=== PATIENT | male | born 1975 | race Caucasian/White ===

== ENCOUNTER → 2018-11-21 09:53 | Outpatient (CLI) | payer OTHER, SELFPAY ==
--- NOTE | 2018-11-21 | DI.MRI.S_ITS ---
PROCEDURE: MR HAND LT WO/W CON INDICATIONS: Localized swelling, mass and lump, unspecified upp TECHNIQUE: Noncontrast coronal T1 spin echo and STIR, sagittal T1 spin echo with fat saturation and STIR, axial T1 spin echo and T2 fast spin echo with fat saturation. After the administration of contrast, axial/sagittal/coronal T1 spin echo with fat saturation through the left hand. COMPARISON: None. FINDINGS: Image quality: Excellent. Bones: The visualized bone marrow demonstrates normal signal on all sequences. The overlying cortex appears intact. No abnormal intraosseous enhancement. Soft tissues: 5 mm round enhancing soft tissue nodule is seen along the ulnar side smaller aspect of the left middle finger, image 21 series 7. This demonstrates T2 hyperintense appearance The scanned muscles demonstrate normal overall bulk and internal signal. Subcutaneous tissues appear normal as well. No abnormal soft tissue enhancement. IMPRESSION: 5 mm enhancing soft tissue nodular appearance along the ulnar/palmar aspect of the left middle finger at the level of the proximal phalanx near the PIP joint. Finding is too small to characterize definitively however not cystic in nature by the MR signal characteristics. Differential includes focal inflammation, fibroma/early fibromatosis, small nerve sheath tumor, other additional less likely neoplastic possibilities. Infection or vascular abnormality is thought to be less likely. Recommend clinical/symptomatic management. Dictated by: Lit Martinez M.D. on 11/21/2018 at 13:04 Approved by: Lit Martinez M.D. on 11/21/2018 at 13:25
== END ==
PROVIDERS: PCP Family Medicine; Visit Provider Orthopaedic Surgery
DX: R22.32 Localized swelling, mass and lump, left upper limb (principal)
CPT/HCPCS: 73220; A9579

== ENCOUNTER → 2019-01-03 08:42 | Outpatient (CLI) | payer OTHER, SELFPAY ==
--- NOTE | 2019-01-03 | DI.MRI.S_ITS ---
PROCEDURE: MR HEAD/BRAIN WO CON INDICATIONS: POST CONCUSSION SYNDROME TECHNIQUE: Noncontrast axial T1 spin echo, axial T2 fast spin echo, sagittal and axial FLAIR, coronal T2 fast spin echo, axial gradient echo, axial diffusion and ADC through the brain. COMPARISON: None. FINDINGS: Image quality: Excellent. CSF Spaces: Basal cisterns are patent. No extra-axial fluid collections. Ventricles are normal in size and shape. Brain: No intracranial masses or hemorrhage. Fairchild/white matter interface is normal. Brainstem appears normal. Diffusion-weighted images demonstrate no acute ischemic insult. No chronic ischemic insults. Normal intravascular flow voids are present. Skull and face: Calvarium has normal marrow signal. Orbits appear normal. Sinuses: Sinuses and mastoids are clear. IMPRESSION: Normal for age, no sign of posttraumatic brain parenchymal hemorrhage or epidural/subdural hematoma. Dictated by: Anil Solares M.D. on 01/05/2019 at 8:15 Approved by: Anil Solares M.D. on 01/05/2019 at 8:16
== END ==
PROVIDERS: PCP Family Medicine; Visit Provider Psychiatry & Neurology Neurology
DX: F07.81 Postconcussional syndrome (principal)
CPT/HCPCS: 70551

== ENCOUNTER → 2019-02-17 06:56 | Outpatient (CLI) | payer OTHER, SELFPAY ==
--- NOTE | 2019-02-17 | DI.ECHO.S_ITS ---
[facility] +---------+ : : [address] : : : : [id number] : : : : Phone: [phone]+ Echocardiogram Report + + :Name: BJ CORNELL Study Date: 02/17/2019 Height: 68 in : [id number]: [facility] Weight: 215 lb : : Gender: Male BSA: 2.1 m2 : :: 1975 Age: 43 yrs BP: 120/85 mmHg: :Reason For Study: Murmur : : Performed By: Hiral Holman : :Referring: ALEXEY MENDOZA : + + Interpretation Summary The ejection fraction is estimated to be 60-65%. There is no significant valvular heart disease. Procedure: A two-dimensional transthoracic echocardiogram with color flow and Doppler was performed. The study quality was technically adequate. There is no prior echocardiogram noted for this patient. The patient was in normal sinus rhythm during the exam. Left Ventricle: The left ventricle is normal in size, wall thickness, and systolic function without any focal wall motion abnormalities. The ejection fraction is estimated to be 60-65%. Diastolic parameters suggest probable normal left ventricular diastolic function and normal filling pressures. Right Ventricle: The right ventricle is normal in size and function. Atria: Both atria are normal in size. There is no Doppler evidence for an interatrial shunt. Mitral Valve: The mitral valve is normal in structure and function. There is trace mitral regurgitation. Aortic Valve: The aortic valve is trileaflet. The aortic valve opens well. There is trace aortic regurgitation. Tricuspid Valve: The tricuspid valve is normal in structure and function. There is trace tricuspid regurgitation. The right ventricular systolic pressure is estimated to be at least 23 mmHg based on an estimated right atrial pressure of 3 mm Hg. Pulmonic Valve: The pulmonic valve is not well seen, but is grossly normal. There is trace pulmonic regurgitation. Great Vessels: The aortic root is normal size. The ascending aorta is at the upper limits of normal in size. Mild atherosclerotic plaque(s) in the aortic arch. The aortic arch is normal in size. The pulmonary artery is not well visualized, but is probably normal size. The IVC is of normal diameter and collapses greater than 50% with a sniff. This suggests a low right atrial pressure of 3 mm Hg. Pericardium/ Pleura There is no pericardial effusion. There is no pleural effusion. MMode/2D Measurements & Calculations LVIDd: 4.6 cm LVOT diam: 1.9 cm LVIDs: 3.0 cm Ao root diam: 3.4 cm FS: 35.1 % asc Aorta Diam: 3.4 cm EPSS: 0.11 cm Ao Arch Diam (Prox Trans): 2.5 cm IVSd: 0.68 cm LVPWd: 0.96 cm LV castellon. diameter/BSA (cm/m^2): 2.2 LV sys. diameter/BSA (cm/m^2): 1.4 LA A2 area: 23.2 cm2 RA long axis: 5.0 cm LA A4 area: 18.8 cm2 RA area: 17.5 cm2 LA length (vol): 5.3 cm RA vol: 52.0 ml LA vol: 69.9 ml RA : 24.7 ml/m2 LA vol index: 33.1 ml/m2 IVC diam: 1.9 cm RVD1 (basal): 4.3 cm RVD2 (mid): 3.7 cm TAPSE: 2.1 cm Doppler Measurements & Calculations Ao V2 max: 140.0 cm/sec LVOT Max Fran: 124.0 cm/sec Ao V2 mean: 97.8 cm/sec LV V1 max P.1 mmHg Ao max P.8 mmHg LV V1 VTI: 23.5 cm Ao mean P.2 mmHg HETAL(I,D): 2.7 cm2 Ao V2 VTI: 24.9 cm HETAL(V,D): 2.5 cm2 sev ratio: 0.94 HETAL indexed to BSA (cm^2/m^2): 1.3 MV E max fran: 71.5 cm/sec TR max fran: 222.8 cm/sec MV A max fran: 80.7 cm/sec TR max P.9 mmHg MV E/A: 0.89 PA V2 max: 85.9 cm/sec Med Peak E' Fran: 7.4 cm/sec PA V2 mean: 62.8 cm/sec E/E' med: 9.6 PA mean P.7 mmHg Lat Peak E' Fran: 13.8 cm/sec PA Accel Time: 0.13 sec E/E' lat: 5.2 E/e' average: 7.4 MV dec time: 0.17 sec MV P1/2t: 51.7 msec MV P1/2t max fran: 74.3 cm/sec SV(LVOT): 67.6 ml MVA(P1/2t): 4.3 cm2 Reading Physician:08:18 AM
== END ==
PROVIDERS: PCP Family Medicine; Visit Provider Physician Assistant
DX: R01.1 Cardiac murmur, unspecified (principal); I70.0 Atherosclerosis of aorta
CPT/HCPCS: 93306

== ENCOUNTER 2019-03-16 12:30 | Outpatient (RCR) | payer OTHER, SELFPAY ==
--- NOTE | 2019-01-19 18:28 | ST.OPIE ---
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 Brenda Gonzalez Reason for Referral Concussive cognitive problems Language Evaluation Assessment Type Expressive/Receptive/Cognitive Communication Skills Past Medical History Patient History The pt is a 43-yr-old right- handed male who experienced a concussive head injury in June 2018 while working out at the gym. He fell from a bar 8 feet in the air and landed on his neck, shoulder and head. He lost conciuosness for an unknown period of time and was found by another person working out at the gym. He did not seek urgent medical attention after regaining consciousness, though he experienced slight confusion and mild headache. Symptoms worsened after he got home; his headache was more severe, he had blurred vision and tunnel vision, and was vomiting. 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 Head CT was administered and negative for acute changes. Medicinal treatment is now being managed by Dr. Gonzalez, who referred the pt to Speech Pathology secondary to word- finding difficulties and forgetfulness which interfere with his ability to perform his work duties and participate in his home life with his and 2 children. 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 Over the course of his life, he has participated in activities of moderate to high risk for concussion, including playing football and serving in active duty. He recalled once hitting his head on the bottom of a swimming pool when diving but denies any symptoms similar to those experienced in his 2018 fall. 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 - Informal Assessment Receptive Language Normal Yes Expressive Language Normal No: Word finding difficulties Articulation Normal Yes Cognition Normal No: Short-term/working memory impairment Assessment Findings The pt performed WNL on standardized test. However, he complains of impairments in memory and attention that interfere with his ability to perform his jobs and hobbies and participate in ADLs per PLOF. Recommendations Further standardized and criterion referenced assessment is necessary to fully evaluate the pt's areas of strengths and deficits to guide POC. Formal Assessment Standardized Test Scales of Cognitive & Communicative Ability for Neurorehabilitation (SCCAN) Administration Complete Raw Score 93 Percentile Rank 87 Results Degree of Severity: Typical Functioning Pt achieved 100% in the following Scales: Oral Expression, Orientation, Memory, Reading Comprehension, Writing, Attention, and Problem Solving. He achieved 92% accuracy in Speech Comprehension. - Receptive Language - Expressive Language - Treatment Goals Short Term Goals 1. The pt will participate in further evaluation of expressive, receptive, and cognitive communication skills to guide POC. 2. The pt will perform selective attention tasks of moderate difficulty with 90% accuracy to improve ability to attain to tasks in busy functional environments and complete work and home responsibilities. 3. The pt will perform short- term and working memory tasks of moderate difficulty with 90 % accuracy to improve ability to attain to tasks in busy functional environments and complete work and home responsibilities. Further goals to be developed upon completion of assessment. Office Service Coordinator Goals 1. The pt will demonstrate expressive, receptive, and cognitive communication skills WFL to perform work and home responsibilities and maintain professional and personal relationships. Further goals to be developed upon completion of assessment.
--- NOTE | 2019-01-27 17:53 | ST.OPTN ---
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 He reported observations of difficulties with attention, STM (i.e., arriving for treatment on the wrong day and forgetting to complete a task requested by his ~10 min after the request), and dependence on notes and lists for recall. 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 The pt will demonstrate understanding of word recall strategies by performing structured circumlocution and synonym tasks with 90% accuracy. 2. The pt will perform selective attention tasks of moderate difficulty with 90% accuracy to improve ability to attain to tasks in busy functional environments and complete work and home responsibilities. 3. Using memory strategies as needed, the pt will retell short stories (up to 10 sentences) with 80% accuracy to improve memory function and demonstrate understanding of memory strategies. Fci Goals 1. The pt will perform short- term and working memory tasks of moderate difficulty with 90 % accuracy to improve ability to attain to tasks in busy functional environments and complete work and home responsibilities. 2. The pt will demonstrate delayed recall (10 or more minutes) of functional information provided orally (e .g., tasks, lists, messages, etc.) with 90% accuracy to improve short-term and working memory for functional responsibilities. 3.The pt will demonstrate expressive, receptive, and cognitive communication skills WFL to perform work and home responsibilities and maintain professional and personal relationships, as measured by therapeutic task completion, pt/family report, and clinician judgment. Treatment Activities Education provided to pt RE SCCAN test results. Administered Cognitive Linguistic Quick Test for further evaluation of speech/ language/cognitive communication skills. All scores were WNL. Pt exhibited greatest difficulty with story retell, recalling 50% of story details; and design generation, generating 11 total designs, two of which were perseverated. The pt stated his difficulty with story recall demonstrated his greatest challenge. Skilled feedback provided including HEP tasks. Pt was receptive and agreeable to recommendations. Assessment Patient Response to Treatment Good Rehab Potential Good Impairments Identified Attention Memory - Short Term Memory - Working Assessment of Improvement The pt demonstrated skills WNL in total scores of standardized assessment. Deficits in STM were exhibited in subtests, particularly story retell, and possible attention/recall/mental flexibility deficits in design generation. He exhibited strengths in areas of executive functions including planning, sequencing and problem solving. Reviewed with Patient Goals Progress Being Made Home Exercise Program Patient/Caregiver Understanding Excellent Plan Therapeutic Contents Client Education Cognitive-Linguistic Training Home Exercise Program Information Processing Provided Patient/Caregiver Instruction Home Exercise Program Plan of Care Questions/Concerns Therapy Recommendations Continue with Current Program
--- NOTE | 2019-01-28 11:50 | ST.OPTN ---
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 PARCEL POST CLERK Treatment Note Start: 01/14/19 14:37 Freq: Status: Active Protocol: Document 01/28/19 10:20 JORGE LUIS (Rec: 01/28/19 10:21 JORGE LUIS [id number]) Speech Pathology Treatment Note Session Time Visit Start Time 09:35 Visit Stop Time 10:20 Total Visit Minutes 45 Visit Information Visit Number 10/19 Insurance Information Setting Treatment Setting Outpatient Care Visit Type Note Type Treatment Note Next Note Type Next Note Type Treatment Note General Information General Information The pt is a 43-yr-old right- handed male who experienced a concussive head injury in June 2018 while working out at the gym. He fell from a bar 8 feet in the air and landed on his neck, shoulder and head. He lost conciuosness for an unknown period of time and was found by another person working out at the gym. He did not seek urgent medical attention after regaining consciousness, though he experienced slight confusion and mild headache. Symptoms worsened after he got home; his headache was more severe, he had blurred vision and tunnel vision, and was vomiting. 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 Head CT was administered and negative for acute changes. Medicinal treatment is now being managed by Dr. Gonzalez, who referred the pt to Speech Pathology secondary to word- finding difficulties and forgetfulness which interfere with his ability to perform his work duties and participate in his home life with his and 2 children. 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 Over the course of his life, he has participated in activities of moderate to high risk for concussion, including playing football and serving in active duty. He recalled once hitting his head on the bottom of a swimming pool when diving but denies any symptoms similar to those experienced in his 2018 fall. PMHx: Arthritis, back pain, depression, dizziness, GERD, headaches, hearing problems, hernia, memory loss, psychological disorder (PTSD from experience), shortness of breath, surgery ( not specified), TBI/Concussion Subjective Observations/Patient Presentation Pt arrived on time. He reported observations of difficulties with attention, STM (i.e., arriving for treatment on the wrong day and forgetting to complete a task requested by his ~10 min after the request), and dependence on notes and lists for recall. 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 The pt will demonstrate understanding of word recall strategies by performing structured circumlocution and synonym tasks with 90% accuracy. 2. The pt will perform selective attention tasks of moderate difficulty with 90% accuracy to improve ability to attain to tasks in busy functional environments and complete work and home responsibilities. 3. Using memory strategies as needed, the pt will retell short stories (up to 10 sentences) with 80% accuracy to improve memory function and demonstrate understanding of memory strategies. Director Public Service Goals 1. The pt will perform short- term and working memory tasks of moderate difficulty with 90 % accuracy to improve ability to attain to tasks in busy functional environments and complete work and home responsibilities. 2. The pt will demonstrate delayed recall (10 or more minutes) of functional information provided orally (e .g., tasks, lists, messages, etc.) with 90% accuracy to improve short-term and working memory for functional responsibilities. 3.The pt will demonstrate expressive, receptive, and cognitive communication skills WFL to perform work and home responsibilities and maintain professional and personal relationships, as measured by therapeutic task completion, pt/family report, and clinician judgement. Treatment Activities Training provided in: Word Recall: Instructed pt in circumlocution strategy. Given 2 known words, the pt identified their categories and a variety of details about the items. He identified games that require similar tasks, which will serve as excellent training exercises. Name Recall: Trained association techniques using several examples. The pt identified similar strategy he used to use, demonstrating understanding. Selective Attention: Trained pt in meditation task. He chose a a task he needs to do today as his centering thought and with eyes closed focused his mind on that thought for 2 minutes. He was instructed to acknowledge any competing thoughts and redirect his attention to the centering thought. He stated the task was very difficult. Skilled feedback provided on all of today's tasks RE how they train the brain to think in new ways. Recommend multiple daily practices with each, particularly selective attention exercise, to promote habitual behaviors that will carry over to functional tasks . Pt verbalized understanding and agreement. Assessment Patient Response to Treatment Good Rehab Potential Good Impairments Identified Attention Memory - Short Term Memory - Working Assessment of Improvement The pt demonstrated understanding of all tasks targeted today. He exhibited excellent focused and sustained attention, significant difficulty with selective attention. All task require reinforcement, but the pt was highly stimulable to each. Reviewed with Patient Goals Progress Being Made Home Exercise Program Patient/Caregiver Understanding Excellent Plan Therapeutic Contents Client Education Cognitive-Linguistic Training Home Exercise Program Information Processing Provided Patient/Caregiver Instruction Home Exercise Program Plan of Care Questions/Concerns Therapy Recommendations Continue with Current Program
--- NOTE | 2019-02-04 12:47 | ST.OPTN ---
Care Team Visit Care Team Role Provider Type Luigi Barrios MD Primary Care Provider Non-Staff Address: [facility] [place], [address] Fax: Brenda Gonzalez MD Attending Provider Non-Staff Address: [address] [place], [address] AIR SAMPLER Treatment Note AIR SAMPLER Treatment Note Start: 01/14/19 14:37 Freq: Status: Active Protocol: Document 02/04/19 09:28 JORGE LUIS (Rec: 02/04/19 10:23 JORGE LUIS [id number]) Speech Pathology Treatment Note Session Time Visit Start Time 09:35 Visit Stop Time 10:20 Total Visit Minutes 45 Visit Information Visit Number 11/[id number] Plan of Care Dates 01/14/19 - 04/09/19 Insurance Information Setting Treatment Setting Outpatient Care Visit Type Note Type Treatment Note Next Note Type Next Note Type Treatment Note General Information General Information The pt is a 43-yr-old right- handed male who experienced a concussive head injury in June 2018 while working out at the gym. He fell from a bar 8 feet in the air and landed on his neck, shoulder and head. He lost conciuosness for an unknown period of time and was found by another person working out at the gym. He did not seek urgent medical attention after regaining consciousness, though he experienced slight confusion and mild headache. Symptoms worsened after he got home; his headache was more severe, he had blurred vision and tunnel vision, and was vomiting. 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 Head CT was administered and negative for acute changes. Medicinal treatment is now being managed by Dr. Gonzalez, who referred the pt to Speech Pathology secondary to word- finding difficulties and forgetfulness which interfere with his ability to perform his work duties and participate in his home life with his and 2 children. 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 Over the course of his life, he has participated in activities of moderate to high risk for concussion, including playing football and serving in active duty. He recalled once hitting his head on the bottom of a swimming pool when diving but denies any symptoms similar to those experienced in his 2018 fall. PMHx: Arthritis, back pain, depression, dizziness, GERD, headaches, hearing problems, hernia, memory loss, psychological disorder (PTSD from experience), shortness of breath, surgery ( not specified), TBI/Concussion Subjective Observations/Patient Presentation Pt arrived on time. He reported observations of difficulties with attention, STM (i.e., arriving for treatment on the wrong day and forgetting to complete a task requested by his ~10 min after the request), and dependence on notes and lists for recall. Chief Complaint(s) Language Cognitive Rehab Expectation/Goals: Patient Goals Improve word recall, attention and memory Patient Knowledge/Awareness of AIR SAMPLER Role Good in Treatment Patient/Caregiver Compliance with Home Good Exercise Program Objective Short Term Goals 1. The pt will demonstrate understanding of word recall strategies by performing structured circumlocution and synonym tasks with 90% accuracy. 2. The pt will perform selective attention tasks of moderate difficulty with 90% accuracy to improve ability to attain to tasks in busy functional environments and complete work and home responsibilities. 3. Using memory strategies as needed, the pt will retell short stories (up to 10 sentences) with 80% accuracy to improve memory function and demonstrate understanding of memory strategies. Penitentiary Goals 1. The pt will perform short- term and working memory tasks of moderate difficulty with 90 % accuracy to improve ability to attain to tasks in busy functional environments and complete work and home responsibilities. 2. The pt will demonstrate delayed recall (10 or more minutes) of functional information provided orally (e .g., tasks, lists, messages, etc.) with 90% accuracy to improve short-term and working memory for functional responsibilities. 3.The pt will demonstrate expressive, receptive, and cognitive communication skills WFL to perform work and home responsibilities and maintain professional and personal relationships, as measured by therapeutic task completion, pt/family report, and clinician judgement. Treatment Activities Attention: Pt identified environmental distractors and one strategy for minimizing them to better attend to and complete functional tasks. Pt acknowledged drifting in his thoughts during conversation with AIR SAMPLER. When prompted, he was able to retell main points of conversation and the therapist's recommendations, indicating increased awareness of attention distractors and ability to self-monitor and correct, at least moderately. Memory/Schedule: Pt is highly dependent on phone calendar, checking it multiple times per task d/t fear of missing a task, resulting in highly inefficient use of memory tool . Recommended strategies including dedicated times to review the calendar (complete day or broken into segments) and setting of alarms to alert prior to each item. Pt identified routine events he is not remembering (e.g., son' s weekly swim lessons). Pt agreed to create and bring list of these items to next session for memory strategies training. Skilled education and feedback was provided RE all tasks and pt's concerns. Pt verbalized understanding. HEP: Further developed HEP tasks including at scheduled review of calendar & modifications as needed to improve efficiency of its use; commitment to 1 task/day around which the pt will set up environment to reduce distractions and promote completion of task. Assessment Patient Response to Treatment Good Rehab Potential Good Impairments Identified Attention Memory - Short Term Memory - Working Assessment of Improvement The pt continues to struggle with selective attention skills, acknowledging he is easily distracted in his mind during meditative exercises and in conversations, and during functional tasks is easily distracted by thoughts and environmental distractors. He was responsive to feedback and recommendations for home practice. Calendar use for tracking daily responsibilities is helpful but inefficient. The pt exhibits low levels of trust of the device and his own memory, which lead to frequent episodes of checking his calendar and moments of panic. He stated, My calendar is holding my life together, but I feel like I'm just one lost thought away from missing something that will throw everything off course. Again he was receptive to recommendations to set alarms/ reminders for critical events, to establish routine times to review his calendar and then resist urge to doubt himself of the device and subsequently re-check calendar every few minutes. Reviewed with Patient Goals Progress Being Made Home Exercise Program Patient/Caregiver Understanding Excellent Plan Treatment Emphasis Next Session Internal memory strategies using routine functional events & pt's calendar Therapeutic Contents Client Education Cognitive-Linguistic Training Home Exercise Program Information Processing Provided Patient/Caregiver Instruction Home Exercise Program Plan of Care Questions/Concerns Therapy Recommendations Continue with Current Program
--- NOTE | 2019-02-11 09:27 | ST.OPTN ---
Care Team Visit Care Team Role Provider Type Luigi Barrios MD Primary Care Provider Non-Staff Address: [facility] [place], [address] Fax: Brenda Gonzalez MD Attending Provider Non-Staff Address: [address] [place], [address] BUSINESS MANAGER Treatment Note BUSINESS MANAGER Treatment Note Start: 01/14/19 14:37 Freq: Status: Active Protocol: Document 02/11/19 09:20 JORGE LUIS (Rec: 02/11/19 09:27 JORGE LUIS [id number]) Speech Pathology Treatment Note Session Time Visit Start Time 08:32 Visit Stop Time 10:17 Total Visit Minutes 45 Visit Information Visit Number 12/17 Plan of Care Dates 01/14/19 - 04/09/19 Insurance Information Setting Treatment Setting Outpatient Care Visit Type Note Type Treatment Note Next Note Type Next Note Type Treatment Note General Information General Information The pt is a 43-yr-old right- handed male who experienced a concussive head injury in June 2018 while working out at the gym. He fell from a bar 8 feet in the air and landed on his neck, shoulder and head. He lost conciuosness for an unknown period of time and was found by another person working out at the gym. He did not seek urgent medical attention after regaining consciousness, though he experienced slight confusion and mild headache. Symptoms worsened after he got home; his headache was more severe, he had blurred vision and tunnel vision, and was vomiting. 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 Head CT was administered and negative for acute changes. Medicinal treatment is now being managed by Dr. Gonzalez, who referred the pt to Speech Pathology secondary to word- finding difficulties and forgetfulness which interfere with his ability to perform his work duties and participate in his home life with his and 2 children. 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 Over the course of his life, he has participated in activities of moderate to high risk for concussion, including playing football and serving in active duty. He recalled once hitting his head on the bottom of a swimming pool when diving but denies any symptoms similar to those experienced in his 2018 fall. PMHx: Arthritis, back pain, depression, dizziness, GERD, headaches, hearing problems, hernia, memory loss, psychological disorder (PTSD from experience), shortness of breath, surgery ( not specified), TBI/Concussion Subjective Observations/Patient Presentation Pt arrived on time. No new complaints. Still struggling to recall daily schedule and referring to phone calendar multiple times throughout the day. Chief Complaint(s) Language Cognitive Rehab Expectation/Goals: Patient Goals Improve word recall, attention and memory Patient Knowledge/Awareness of BUSINESS MANAGER Role Good in Treatment Patient/Caregiver Compliance with Home Good Exercise Program Objective Short Term Goals 1. The pt will demonstrate understanding of word recall strategies by performing structured circumlocution and synonym tasks with 90% accuracy. 2. The pt will perform selective attention tasks of moderate difficulty with 90% accuracy to improve ability to attain to tasks in busy functional environments and complete work and home responsibilities. 3. Using memory strategies as needed, the pt will retell short stories (up to 10 sentences) with 80% accuracy to improve memory function and demonstrate understanding of memory strategies. Intermediate Goals 1. The pt will perform short- term and working memory tasks of moderate difficulty with 90 % accuracy to improve ability to attain to tasks in busy functional environments and complete work and home responsibilities. 2. The pt will demonstrate delayed recall (10 or more minutes) of functional information provided orally (e .g., tasks, lists, messages, etc.) with 90% accuracy to improve short-term and working memory for functional responsibilities. 3.The pt will demonstrate expressive, receptive, and cognitive communication skills WFL to perform work and home responsibilities and maintain professional and personal relationships, as measured by therapeutic task completion, pt/family report, and clinician judgement. Treatment Activities Memory: Pt recalled next week' s medical appts with 79% accuracy. Educated pt in memory function. Trained pt in internal memory strategies (i .e., visualization, repetition , association, increased attention, chinking) using appts in his schedule Mon-Wed of next week (7 appts chunked into 4, 3 components each item ). Pt identified visualization and rehearsal as typically strong learning styles. Using memory strategies with mod-max verbal cuing, he recalled immediately and after ~7-min delay with 100% accuracy, each . Skilled feedback provided. Assessment Patient Response to Treatment Good Rehab Potential Good Impairments Identified Attention Memory - Short Term Memory - Working Assessment of Improvement López was responsive to education and training of internal memory function/ strategies. Able to recall multiple component items immediately and after delay with use of strategies. Requires reinforcement to promote carryover to functional use. Reviewed with Patient Goals Progress Being Made Home Exercise Program Patient/Caregiver Understanding Excellent Plan Treatment Emphasis Next Session Internal memory strategies using routine functional events & pt's calendar Therapeutic Contents Client Education Cognitive-Linguistic Training Home Exercise Program Information Processing Provided Patient/Caregiver Instruction Home Exercise Program Plan of Care Questions/Concerns Therapy Recommendations Continue with Current Program
--- NOTE | 2019-02-18 09:15 | ST.OPTN ---
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 MASTER Treatment Note DREDGE MASTER Treatment Note Start: 01/14/19 14:37 Freq: Status: Active Protocol: Document 02/18/19 08:41 JORGE LUIS (Rec: 02/18/19 09:15 JORGE LUIS [id number]) Speech Pathology Treatment Note Session Time Visit Start Time 08:30 Visit Stop Time 10:17 Total Visit Minutes 47 Visit Information Visit Number 01/16 Plan of Care Dates 01/14/19 - 04/09/19 Insurance Information Setting Treatment Setting Outpatient Care Visit Type Note Type Treatment Note Next Note Type Next Note Type Treatment Note General Information General Information The pt is a 43-yr-old right- handed male who experienced a concussive head injury in June 2018 while working out at the gym. He fell from a bar 8 feet in the air and landed on his neck, shoulder and head. He lost conciuosness for an unknown period of time and was found by another person working out at the gym. He did not seek urgent medical attention after regaining consciousness, though he experienced slight confusion and mild headache. Symptoms worsened after he got home; his headache was more severe, he had blurred vision and tunnel vision, and was vomiting. 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 Head CT was administered and negative for acute changes. Medicinal treatment is now being managed by Dr. Gonzalez, who referred the pt to Speech Pathology secondary to word- finding difficulties and forgetfulness which interfere with his ability to perform his work duties and participate in his home life with his and 2 children. 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 Over the course of his life, he has participated in activities of moderate to high risk for concussion, including playing football and serving in active duty. He recalled once hitting his head on the bottom of a swimming pool when diving but denies any symptoms similar to those experienced in his 2018 fall. PMHx: Arthritis, back pain, depression, dizziness, GERD, headaches, hearing problems, hernia, memory loss, psychological disorder (PTSD from experience), shortness of breath, surgery ( not specified), TBI/Concussion Subjective Observations/Patient Presentation Pt arrived on time. Reported, My head feels really cloudy today. I'm having trouble putting my thoughts and words together. He reported significant WFDs this morning. Denied headache. No obvious changes in schedule, stress, sleep patterns, etc., to account for increased fogginess. Chief Complaint(s) Language Cognitive Rehab Expectation/Goals: Patient Goals Improve word recall, attention and memory Patient Knowledge/Awareness of DREDGE MASTER Role Good in Treatment Patient/Caregiver Compliance with Home Good Exercise Program Objective Short Term Goals 1. The pt will demonstrate understanding of word recall strategies by performing structured circumlocution and synonym tasks with 90% accuracy. 2. The pt will perform selective attention tasks of moderate difficulty with 90% accuracy to improve ability to attain to tasks in busy functional environments and complete work and home responsibilities. 3. Using memory strategies as needed, the pt will retell short stories (up to 10 sentences) with 80% accuracy to improve memory function and demonstrate understanding of memory strategies. Sales And Marketing Analyst Goals 1. The pt will perform short- term and working memory tasks of moderate difficulty with 90 % accuracy to improve ability to attain to tasks in busy functional environments and complete work and home responsibilities. 2. The pt will demonstrate delayed recall (10 or more minutes) of functional information provided orally (e .g., tasks, lists, messages, etc.) with 90% accuracy to improve short-term and working memory for functional responsibilities. 3.The pt will demonstrate expressive, receptive, and cognitive communication skills WFL to perform work and home responsibilities and maintain professional and personal relationships, as measured by therapeutic task completion, pt/family report, and clinician judgement. Treatment Activities Memory: Pt recalled today's & tomorrow's appointments. Was unsure of schedule beyond that but had not committed any effort to learn/recall. Education/feedback provided RE potential factors that my impact cognitive skills day to day. Recommended the pt eat and hydrate well today, get a good night's rest, and consult his MD if he feels worsen or if he feels anything more significant may be occurring. He agreed. Initiated attention tasks and introduced cognitive training apps to supplement HEP. The pt completed tasks targeting sustained/selective attn and processing speeds (Lumosity Playing [place]) with 100% accuracy tracking 8 items x4 trials, and 85% accuracy with 9 items x3 trials. Completed divided attn task (Lumosity Train of Thought) with 100% acc with trials including 4 and 5 components. He reported use of visual chunkingto assist with the former, and reported the latter as being very challenging. The pt completed Auditory Memory task ([employer] To-Do List Training) with 89% acc. He exhibited decreased acc with increased complexity of instructions. Skilled feedback and recommendations made for HEP. Assessment Patient Response to Treatment Good Rehab Potential Good Impairments Identified Attention Memory - Short Term Memory - Working Progress Towards Goals Good Progress Assessment of Overall Progress Improving Assessment of Improvement López reported decreased cognitive clarity today with unclear cause. He performed well with structured attention and memory tasks but did exhibit decreased accuracy with increased complexity. He is progressing with use of memory strategies; however, increased severity of symptoms does interfere with progress. Continue tx per POC with increased development of HEP. Reviewed with Patient Goals Progress Being Made Home Exercise Program Patient/Caregiver Understanding Excellent Plan Treatment Emphasis Next Session Internal memory strategies using routine functional events & pt's calendar Therapeutic Contents Client Education Cognitive-Linguistic Training Home Exercise Program Information Processing Provided Patient/Caregiver Instruction Home Exercise Program Plan of Care Questions/Concerns Therapy Recommendations Continue with Current Program
--- NOTE | 2019-02-24 18:01 | ST.OPTN ---
Care Team Visit Care Team Role Provider Type Luigi Barrios MD Primary Care Provider Non-Staff Address: [facility] [place], [address] Fax: Brenda Gonzalez MD Attending Provider Non-Staff Address: [address] [place], [address] MANAGER STRATEGIC Treatment Note MANAGER STRATEGIC Treatment Note Start: 01/14/19 14:37 Freq: Status: Active Protocol: Document 02/24/19 17:43 JORGE LUIS (Rec: 02/24/19 18:00 JORGE LUIS [id number]) Speech Pathology Treatment Note Session Time Visit Start Time 10:30 Visit Stop Time 11:20 Total Visit Minutes 50 Visit Information Visit Number 6 Plan of Care Dates 01/14/19 - 04/09/19 Insurance Information Setting Treatment Setting Outpatient Care Visit Type Note Type Treatment Note Next Note Type Next Note Type Treatment Note General Information General Information The pt is a 43-yr-old right- handed male who experienced a concussive head injury in June 2018 while working out at the gym. He fell from a bar 8 feet in the air and landed on his neck, shoulder and head. He lost conciuosness for an unknown period of time and was found by another person working out at the gym. He did not seek urgent medical attention after regaining consciousness, though he experienced slight confusion and mild headache. Symptoms worsened after he got home; his headache was more severe, he had blurred vision and tunnel vision, and was vomiting. 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 Head CT was administered and negative for acute changes. Medicinal treatment is now being managed by Dr. Gonzalez, who referred the pt to Speech Pathology secondary to word- finding difficulties and forgetfulness which interfere with his ability to perform his work duties and participate in his home life with his and 2 children. 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 Over the course of his life, he has participated in activities of moderate to high risk for concussion, including playing football and serving in active duty. He recalled once hitting his head on the bottom of a swimming pool when diving but denies any symptoms similar to those experienced in his 2018 fall. PMHx: Arthritis, back pain, depression, dizziness, GERD, headaches, hearing problems, hernia, memory loss, psychological disorder (PTSD from experience), shortness of breath, surgery ( not specified), TBI/Concussion Subjective Observations/Patient Presentation Pt arrived on time. Reported feeling better today as complared to last session. Also reported he had attended an MD appt at the [place], which included memory recall of number and word lists. He said he did well with immediate memor of both and with delayed memory of numbers; however, he was unable to recall more than 1 or 2 of 5 words in a list. Chief Complaint(s) Language Cognitive Rehab Expectation/Goals: Patient Goals Improve word recall, attention and memory Patient Knowledge/Awareness of MANAGER STRATEGIC Role Good in Treatment Patient/Caregiver Compliance with Home Good Exercise Program Objective Short Term Goals 1. The pt will demonstrate understanding of word recall strategies by performing structured circumlocution and synonym tasks with 90% accuracy. 2. The pt will perform selective attention tasks of moderate difficulty with 90% accuracy to improve ability to attain to tasks in busy functional environments and complete work and home responsibilities. 3. Using memory strategies as needed, the pt will retell short stories (up to 10 sentences) with 80% accuracy to improve memory function and demonstrate understanding of memory strategies. Fpc Goals 1. The pt will perform short- term and working memory tasks of moderate difficulty with 90 % accuracy to improve ability to attain to tasks in busy functional environments and complete work and home responsibilities. 2. The pt will demonstrate delayed recall (10 or more minutes) of functional information provided orally (e .g., tasks, lists, messages, etc.) with 90% accuracy to improve short-term and working memory for functional responsibilities. 3.The pt will demonstrate expressive, receptive, and cognitive communication skills WFL to perform work and home responsibilities and maintain professional and personal relationships, as measured by therapeutic task completion, pt/family report, and clinician judgement. Treatment Activities Word Recall: The pt was asked to list 3 synonyms of words. For each word, he named 1 synonym easily, 2 synonyms with moderate extended time, and required prompts to name a 3rd synonyms. He stated, I can't get past the first word I thought of. Education and training provided RE word list memory strategies including creating sentences, visualizing words/lists, reading, writing, and repetition of words. Using these strategies and 2 lists of 4 related words, he recalled all words (100%) immediately and after an ~15 min delay. Mildly extended time required for recall of 1 of the 8 words. Selective Attn: Pt performed meditation on a single thought for 2 minutes. At the end, he reported being distracted by thoughts and environmental sounds >90% of the time. Given auditory and visual presentation of a TYSON talk lasting 2.5 minutes, the pt tracked 9 episodes of his mind wandering away from the task. However, he was able to retell the main points of the talk accurately. He reported this was normal behavior for him prior to onset of injury, but noted at that time he could recall the gist of things without difficulty. Now he does not always recall information and to do so requires significantly more effort. Assessment Patient Response to Treatment Good Rehab Potential Good Impairments Identified Attention Memory - Short Term Memory - Working Progress Towards Goals Good Progress Assessment of Overall Progress Improving Assessment of Improvement López was responsive to word list memory strategies, demonstrating ability to recall lists of words in order after 15 minutes of distraction. He demonstrated ease in single synonym naming tasks with marked increased difficulty expanding to 2 or 3 synonyms. He benefited from putting original words in sentences and then modifying the sentences with synonyms; however, he consistently required prompting to produce 3 synonyms for common words. López continues to exhibit great difficulty with selective attention tasks. Nevertheless, he was able to retell main points of a monologue of moderate complexity and unfamiliarity. Attention tasks appear to pose significant interference with López's ability to track conversation and recall tasks/ schedules, etc. He was receptive to feedback and recommendations for HEP tasks. Reviewed with Patient Goals Progress Being Made Patient/Caregiver Understanding Excellent Plan Treatment Emphasis Next Session Internal memory strategies using routine functional events & pt's calendar Therapeutic Contents Client Education Cognitive-Linguistic Training Home Exercise Program Information Processing Provided Patient/Caregiver Instruction Home Exercise Program Plan of Care Questions/Concerns Therapy Recommendations Continue with Current Program
--- NOTE | 2019-03-16 13:29 | ST.OPTN ---
Care Team Visit Care Team Role Provider Type Luigi Barrios MD Primary Care Provider Non-Staff Address: [facility] [place], [address] Fax: Brenda Gonzalez MD Attending Provider Non-Staff Address: [address] [place], [address] PICK PACK WORKER Treatment Note PICK PACK WORKER Treatment Note Start: 01/14/19 14:37 Freq: Status: Active Protocol: Document 03/16/19 13:19 JORGE LUIS (Rec: 03/16/19 13:28 JORGE LUIS [id number]) Speech Pathology Treatment Note Session Time Visit Start Time 12:30 Visit Stop Time 13:15 Total Visit Minutes 45 Visit Information Visit Number 7 Plan of Care Dates 01/14/19 - 04/09/19 Insurance Information Setting Treatment Setting Outpatient Care Visit Type Note Type Treatment Note Next Note Type Next Note Type Treatment Note General Information General Information The pt is a 43-yr-old right- handed male who experienced a concussive head injury in June 2018 while working out at the gym. He fell from a bar 8 feet in the air and landed on his neck, shoulder and head. He lost conciuosness for an unknown period of time and was found by another person working out at the gym. He did not seek urgent medical attention after regaining consciousness, though he experienced slight confusion and mild headache. Symptoms worsened after he got home; his headache was more severe, he had blurred vision and tunnel vision, and was vomiting. 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 Head CT was administered and negative for acute changes. Medicinal treatment is now being managed by Dr. Gonzalez, who referred the pt to Speech Pathology secondary to word- finding difficulties and forgetfulness which interfere with his ability to perform his work duties and participate in his home life with his and 2 children. 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 Over the course of his life, he has participated in activities of moderate to high risk for concussion, including playing football and serving in active duty. He recalled once hitting his head on the bottom of a swimming pool when diving but denies any symptoms similar to those experienced in his 2018 fall. PMHx: Arthritis, back pain, depression, dizziness, GERD, headaches, hearing problems, hernia, memory loss, psychological disorder (PTSD from experience), shortness of breath, surgery ( not specified), TBI/Concussion Subjective Observations/Patient Presentation Pt arrived on time. Reported a significant WFD yesterday. He employed word recall strategies with success in avoiding conversation breakdown but not retrieving the word until ~10 min later. Chief Complaint(s) Language Cognitive Rehab Expectation/Goals: Patient Goals Improve word recall, attention and memory Patient Knowledge/Awareness of PICK PACK WORKER Role Good in Treatment Patient/Caregiver Compliance with Home Good Exercise Program Objective Short Term Goals 1. The pt will demonstrate understanding of word recall strategies by performing structured circumlocution and synonym tasks with 90% accuracy. 2. The pt will perform selective attention tasks of moderate difficulty with 90% accuracy to improve ability to attain to tasks in busy functional environments and complete work and home responsibilities. 3. Using memory strategies as needed, the pt will retell short stories (up to 10 sentences) with 80% accuracy to improve memory function and demonstrate understanding of memory strategies. Fpc Goals 1. The pt will perform short- term and working memory tasks of moderate difficulty with 90 % accuracy to improve ability to attain to tasks in busy functional environments and complete work and home responsibilities. 2. The pt will demonstrate delayed recall (10 or more minutes) of functional information provided orally (e .g., tasks, lists, messages, etc.) with 90% accuracy to improve short-term and working memory for functional responsibilities. 3.The pt will demonstrate expressive, receptive, and cognitive communication skills WFL to perform work and home responsibilities and maintain professional and personal relationships, as measured by therapeutic task completion, pt/family report, and clinician judgement. Treatment Activities Naming: Pt named pictures with 100% accuracy, delay x1 pic. Attn/Memory: Pt completed picture N-back tasks with 100% acc (1-back and 2-back without distractions), 85% acc w/ dual task (naming pics) at 3-back over trials, 86% acc w /o naming over 3 trials. Pt reported naming aloud as increasing difficulty of task. Tracking Conversation: Following PICK PACK WORKER feedback and recommendations provided mostly in monologue x5 min, the pt recalled 2/4 recommendations independently + the other 2 with verbal prompts. Assessment Patient Response to Treatment Good Rehab Potential Good Impairments Identified Attention Memory - Short Term Memory - Working Progress Towards Goals Good Progress Assessment of Overall Progress Improving Assessment of Improvement López is progressing with using word recall and attention strategies in functional situations. Continues to struggle with both but is finding and using compensatory strategies to avoid conversation breakdowns. He continues to be frustrated with deficits. In structured and unstructured tasks, he exhibited mild attention deficits, greater in unstructured tasks and in dual activity tasks. Good memory with 1- and 2-back visual tasks, decreased accuracy with 3-back but maintaining >80% accuracy. Reviewed with Patient Goals Progress Being Made Patient/Caregiver Understanding Excellent Plan Treatment Emphasis Next Session Internal memory strategies using routine functional events & pt's calendar Therapeutic Contents Client Education Cognitive-Linguistic Training Home Exercise Program Information Processing Provided Patient/Caregiver Instruction Home Exercise Program Plan of Care Questions/Concerns Therapy Recommendations Continue with Current Program
--- NOTE | 2019-04-27 13:14 | ST.OPDS ---
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 He fell from a bar 8 feet in the air and landed on his neck, shoulder and head. He lost conciuosness for an unknown period of time and was found by another person working out at the gym. He did not seek urgent medical attention after regaining consciousness, though he experienced slight confusion and mild headache. Symptoms worsened after he got home; his headache was more severe, he had blurred vision and tunnel vision, and was vomiting. 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. Head CT was administered and negative for acute changes. Medicinal treatment is now being managed by Dr. Gonzalez, who referred the pt to Speech Pathology secondary to word- finding difficulties and forgetfulness which interfere with his ability to perform his work duties and participate in his home life with his and 2 children. 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 Over the course of his life, he has participated in activities of moderate to high risk for concussion, including playing football and serving in active duty. He recalled once hitting his head on the bottom of a swimming pool when diving but denies any symptoms similar to those experienced in his 2018 fall. PMHx: Arthritis, back pain, depression, dizziness, GERD, headaches, hearing problems, hernia, memory loss, psychological disorder (PTSD from experience), shortness of breath, surgery ( not specified), TBI/Concussion Subjective Observations/Patient Presentation No authorization received from MD. Left VM with pt informing of current discharge from skilled intervention and need for new MD referral if pt wishes to continue with cognitive communication/ expressive language therapy. Goals not met at time of dc. Chief Complaint(s) Language Cognitive Objective Short Term Goals 1. The pt will demonstrate understanding of word recall strategies by performing structured circumlocution and synonym tasks with 90% accuracy. 2. The pt will perform selective attention tasks of moderate difficulty with 90% accuracy to improve ability to attain to tasks in busy functional environments and complete work and home responsibilities. 3. Using memory strategies as needed, the pt will retell short stories (up to 10 sentences) with 80% accuracy to improve memory function and demonstrate understanding of memory strategies. Interactive Media Project Manager Goals 1. The pt will perform short- term and working memory tasks of moderate difficulty with 90 % accuracy to improve ability to attain to tasks in busy functional environments and complete work and home responsibilities. 2. The pt will demonstrate delayed recall (10 or more minutes) of functional information provided orally (e .g., tasks, lists, messages, etc.) with 90% accuracy to improve short-term and working memory for functional responsibilities. 3.The pt will demonstrate expressive, receptive, and cognitive communication skills WFL to perform work and home responsibilities and maintain professional and personal relationships, as measured by therapeutic task completion, pt/family report, and clinician judgement.
== END 2019-04-28 11:15 | disposition home or self-care (01) ==
LOC: SP 12:30
PROVIDERS: PCP Family Medicine; Visit Provider Psychiatry & Neurology Neurology
DX: F07.81 Postconcussional syndrome (principal)
CPT/HCPCS: 92507; 92523